=== PATIENT | male | born 1995 | race Caucasian/White ===

== ENCOUNTER 2022-11-28 02:40 | Emergency (ER) | payer MEDICARE, MEDICAID ==
[~2022-11-28] VITALS: Ht 190.5 cm; Wt 114.0 kg
[2022-11-28 03:15] VITALS: BP 131/76
[2022-11-28 03:16] LABS: CHLORIDE 104 mEq/L (98-107)
[2022-11-28 03:18] LABS: BASOPHILS % 0.3 % (0.0-2.0); HEMATOCRIT. 48.1 % (42.0-52.0); HEMOGLOBIN. 16.2 g/dL (14.0-18.0); LYMPHOCYTES % 27.6 % (20.0-50.0); MEAN CORPUSCULAR HEMOGLOBIN 28.7 pg (28.0-32.0); MEAN CORPUSCULAR VOLUME 85.4 fL (80.0-94.0); MEAN PLATELET VOLUME 8.2 fl (7.4-10.4); MONOCYTES % 10.3 % (2.0-8.0); NEUTROPHILS % 59.8 % (40.0-76.0); PLATELET 171 x1000/uL (130-400); RED BLOOD CELL COUNT 5.63 mill/uL (4.7-6.1); RED CELL DISTRIBUTION WIDTH 14.5 % (11.6-14.6)
[2022-11-28] MEDS ORDERED: DICYCLOMINE 10 MG/5 ML ORAL SYR PO STA (03:52)
[2022-11-28] MEDS ORDERED: MAGNESIUM/ALUMINUM HYDROXIDE/SIMETHICONE 30ML UDC PO STA (03:52)
[2022-11-28] MEDS ORDERED: IBUP-2029 MT (05:49)
== END 2022-11-28 06:05 | disposition home or self-care (01) ==
LOC: ER 02:40
DX: K80.50 Calculus of bile duct without cholangitis or cholecystitis without obstruction (principal); R03.0 Elevated blood-pressure reading, without diagnosis of hypertension
CPT/HCPCS: 36415; 74176; 80053; 85025; 99284

== ENCOUNTER 2023-08-29 16:25 | Emergency (ER) | payer MEDICARE, MEDICAID ==
[~2023-08-29] VITALS: Ht 188 cm; Wt 115.0 kg
[~2023-08-29 16:25] MED LIST: IBUP-2029 MT
[2023-08-29 16:28] VITALS: BP 163/93
[2023-08-29] MEDS ORDERED: IPRATROPIUM BROMIDE (0.02%) 0.5MG/2.5ML NEB HHN STA (16:36)
[2023-08-29] MEDS ORDERED: ALBUTEROL (0.083%) 2.5MG/3ML NEB HHN STA (16:36)
[2023-08-29] MEDS ORDERED: PREDNISONE 20MG TABLET PO STA (16:36)
[2023-08-29 17:20] VITALS: PULSE 100; RESP 20; O2SAT 92
[2023-08-29] MEDS ORDERED: ALBU6.7H15 INH (19:08)
[2023-08-29] MEDS ORDERED: P50 MT (19:08)
[2023-08-29 20:10] VITALS: PULSE 100; RESP 20; TEMP 98.1
== END 2023-08-29 20:23 | disposition home or self-care (01) ==
LOC: ER 16:25
DX: J45.901 Unspecified asthma with (acute) exacerbation (principal)
CPT/HCPCS: 99283; 94640; 94664; J7512

== ENCOUNTER 2023-11-08 19:19 | Emergency (ER) | payer MEDICARE, MEDICAID ==
[~2023-11-08] VITALS: Ht 188 cm; Wt 150.0 kg
[~2023-11-08 19:19] MED LIST changes: +ALBU6.7H15 INH; +P50 MT
[2023-11-08 19:26] VITALS: TEMP 97.9; O2SAT 99
[2023-11-08 20:30] VITALS: BP 162/102; PULSE 87; RESP 16
[2023-11-08] MEDS: HYDROCODONE/ACETAMINOPHEN 5/325MG TABLET PO ONE (20:30)
[2023-11-08] MEDS ORDERED: IBUP-2029 MT (20:41)
== END 2023-11-08 21:08 | disposition home or self-care (01) ==
LOC: ER 19:19
DX: M53.3 Sacrococcygeal disorders, not elsewhere classified (principal); J45.909 Unspecified asthma, uncomplicated; F31.9 Bipolar disorder, unspecified; F20.9 Schizophrenia, unspecified; Z79.899 Other long term (current) drug therapy; Z88.0 Allergy status to penicillin
CPT/HCPCS: 72100; 72220; 99284